=== PATIENT | female | born 1985 | race Caucasian/White ===

== ENCOUNTER 2024-12-07 11:56 | Emergency (ER) | payer OTHER ==
[2024-12-07] MEDS: Metoclopramide 10 MG/2 ML SDV IM ONE (12:35)
[2024-12-07] MEDS: Acetaminophen 325 MG Tab PO ONE (12:36)
[2024-12-07 13:59] VITALS: BP 122/71; PULSE 74
== END 2024-12-07 13:55 | disposition home or self-care (01) ==
LOC: MW.ED 11:56
DX: S09.90XA Unspecified injury of head, initial encounter (principal); Z91.09 Other allergy status, other than to drugs and biological substances; Z79.899 Other long term (current) drug therapy; V49.49XA Driver injured in collision with other motor vehicles in traffic accident, initial encounter; Y93.89 Activity, other specified
CPT/HCPCS: 70450; 96372; 99285; A9270; J2765